=== PATIENT | female | born 1990 | race Caucasian/White ===

== ENCOUNTER 2017-12-15 18:03 | Emergency (ER) | payer MEDICAID, OTHER ==
[~2017-12-15] VITALS: Ht 162.6 cm; Wt 54.4 kg
[2017-12-15 18:23] VITALS: BP 152/101
--- NOTE | 2017-12-15 18:25 | NUR ---
PT WHEEL CHAIR ASSISTED BACK TO THE LOBBY
--- NOTE | 2017-12-15 18:56 | NUR ---
PATIENT TAKEN TO ER BED 9 FROM XRAY
[2017-12-15 19:00] VITALS: BP 150/100
--- NOTE | 2017-12-15 19:00 | NUR ---
27Y/F BIB FRIEND C/O BACK PAIN S/P FALL. PT STATES " SHE FELL FROM 6TH STEP OF LADDER AND LANDED ON HER BACK ON A CONCRETE FLOOR; DENIES ANY OTHER INJURY, -ALOC. PT STATES " EVERYTIME SHE BREATH IN IT HURTS, 10/10 PAIN SCALE. PT IS AAOX4, SKIN INTACT, DRY/WARM. PT HAS NO N/V/D. VSS; PATIENT POSITIONED FOR COMFORT; HOB ELEVATED; BEDRAILS UP X1; BED DOWN. ER MD MADE AWARE OF PT STATUS.
--- NOTE | 2017-12-15 19:43 | NUR ---
Dr. Segal evaluating patient at bedside.
[2017-12-15] MEDS ORDERED: KETOROLAC 30 MG/ML VIAL IM ONE (19:50)
[2017-12-15] MEDS ORDERED: DIAZEPAM 5 MG TAB PO ONE (19:50)
[2017-12-15] MEDS ORDERED: HYDROcodone/APAP 5/325 MG 1 TAB TAB PO ONE (19:50)
[2017-12-15 20:23] LABS: BARBITURATE, URINE NEG. ng/ml (NEG <=200); BENZODIAZEPINE, URINE NEG. ng/mL (NEG <=200); CANNABINOID, URINE POS. ng/mL (NEG <=50); COCAINE, URINE NEG. ng/mL (NEG <=300); OPIATE, URINE NEG. ng/mL (NEG <=2000); PHENCYCLIDINE SCREEN,URINE NEG. ng/mL (NEG <=25)
--- NOTE | 2017-12-15 21:00 | NUR ---
PT FOUND TO BE ELOPED FROM ROOM, EDMD AND PRIMARY RN MADE AWARE.
== END 2017-12-15 21:00 | disposition home or self-care (01) ==
LOC: MED 18:03
DX: S22.32XA Fracture of one rib, left side, initial encounter for closed fracture (principal); M54.9 Dorsalgia, unspecified; F17.200 Nicotine dependence, unspecified, uncomplicated; W11.XXXA Fall on and from ladder, initial encounter; Y93.89 Activity, other specified; Y92.59 Other trade areas as the place of occurrence of the external cause; Y99.8 Other external cause status
CPT/HCPCS: 71101; 80305; 81002; 81025; 96372; 99285; J1885

== ENCOUNTER 2024-02-12 17:54 | Emergency (ER) | payer OTHER ==
[~2024-02-12] VITALS: Ht 165.1 cm; Wt 54.4 kg
[2024-02-12 18:06] VITALS: BP 136/99; PULSE 109; RESP 21; TEMP 99.8; O2SAT 100
[2024-02-12 18:52] VITALS: BP 136/99; PULSE 109; RESP 21; TEMP 99.8; O2SAT 100
[2024-02-12 19:06] LABS: FLU A ANTIGEN negative (NEGATIVE); FLU B ANTIGEN NEGATIVE (NEGATIVE)
[2024-02-12 19:06] LABS: BILIRUBIN,URINE 1+ (NEGATIVE); BLOOD, URINE 1+ (NEGATIVE); COLOR,URINE YELLOW (YELLOW); LEUKOCYTE ESTERASE ,URINE 2+ (NEGATIVE); NITRITE, URINE POSITIVE (NEGATIVE); PROTEIN,URINE 1+ (NEGATIVE); UGLUCOSE NEGATIVE (NEGATIVE); UROBILINOGEN,URINE >=8.0 EU/dL (0.2 - 1)
[2024-02-12] MEDS: ACETAMINOPHEN EXTRA STRENGTH 500 MG TAB PO ONE (19:08)
[2024-02-12 19:14] LABS: APPEARANCE,URINE CLOUDY (CLEAR)
[2024-02-12 19:15] LABS: BACTERIA,URINE >30 (MANY) /HPF (None Seen); ICTOTEST NEGATIVE (NEGATIVE); RBC,URINE 80-100 /HPF (0-5); WBC,URINE 80-100 /HPF (0-5)
[2024-02-12 19:16] LABS: MUCUS,URINE None Seen /LPF (None Seen); SQUAMOUS EPITHELIAL CELL,UR 4-10 (MOD) /LPF (0-3 (FEW)); TRICHOMONAS,URINE None Seen /HPF (None Seen); WHITE BLOOD CELL CASTS,URINE None Seen /LPF (None Seen); YEAST,URINE None Seen /HPF (None Seen)
[2024-02-12] MEDS ORDERED: IBUP-2213 PO (19:27)
[2024-02-12] MEDS ORDERED: CEPH-588 PO (19:27)
[2024-02-12] MEDS ORDERED: ONDA-188 SL (19:27)
[2024-02-12] MEDS ORDERED: ACET500T99 PO (19:27)
[2024-02-13] MEDS ORDERED: CEPH-588 PO (23:08)
[2024-02-13] MEDS ORDERED: AZIT250T4 PO (23:09)
== END 2024-02-12 19:20 | disposition left against medical advice (07) ==
LOC: MED 17:54
DX: S09.90XA Unspecified injury of head, initial encounter (principal); N39.0 Urinary tract infection, site not specified; G89.29 Other chronic pain; M25.551 Pain in right hip; M54.9 Dorsalgia, unspecified; Z20.822 Contact with and (suspected) exposure to COVID-19; R05.9 Cough, unspecified; R09.81 Nasal congestion; Z79.899 Other long term (current) drug therapy; W22.8XXA Striking against or struck by other objects, initial encounter; Y92.89 Other specified places as the place of occurrence of the external cause; Y93.89 Activity, other specified; Y99.8 Other external cause status
CPT/HCPCS: 81001; 81025; 87086; 87186; 99283

== ENCOUNTER 2024-02-13 12:21 | Emergency (ER) | payer OTHER ==
[~2024-02-13 12:21] MED LIST: ACET500T99 PO; CEPH-588 PO; IBUP-2213 PO; ONDA-188 SL
[2024-02-13] MEDS ORDERED: CEPH-588 PO (23:08)
[2024-02-13] MEDS ORDERED: AZIT250T4 PO (23:09)
== END 2024-02-13 12:45 | disposition left against medical advice (07) ==
LOC: MED 12:21
DX: R51.9 Headache, unspecified (principal); Z53.21 Procedure and treatment not carried out due to patient leaving prior to being seen by health care provider

== ENCOUNTER 2024-02-13 16:12 | Emergency (ER) | payer OTHER ==
[~2024-02-13] VITALS: Ht 165.1 cm; Wt 52.2 kg
[2024-02-13 16:41] VITALS: BP 109/89; PULSE 122; RESP 20; TEMP 98.3; O2SAT 100
[2024-02-13 19:02] LABS: BASOPHILS # (AUTO) 0.1 K/uL (0.00-0.22); BASOPHILS % (AUTO) 0.4 % (0.0-2.0); EOSINOPHILS % (AUTO) 0.1 % (0.0-4.0); HEMATOCRIT 40.2 % (36-48); HEMOGLOBIN 13.5 g/dL (12.0-16.0); LYMPHOCYTES # (AUTO) 0.6 K/uL (2.5-16.5); LYMPHOCYTES % (AUTO) 3.8 % (20.5-51.1); MEAN CORPUSCULAR HEMOGLOBIN 31 pg (27-31); MEAN CORPUSCULAR HGB CONC 33 g/dL (33-37); MEAN CORPUSCULAR VOLUME 91.5 fL (80-94); MONOCYTES # (AUTO) 1.3 K/uL (0.8-1.0); MONOCYTES % (AUTO) 8.8 % (1.7-9.3); NEUTROPHILS # (AUTO) 13.1 K/uL (1.8-7.7); NEUTROPHILS % (AUTO) 86.9 % (42.2-75.2); PLATELET COUNT (AUTO) 197 K/uL (140-450); RED CELL DISTRIBUTION WIDTH 13.4 % (11.6-13.7); WHITE BLOOD COUNT (AUTO) 15.1 K/uL (4.8-10.8)
[2024-02-13] MEDS ORDERED: cefTRIAXone 1,000 MG VIAL ONE (19:23)
[2024-02-13 19:35] LABS: ALBUMIN 3.1 g/dL (3.4-5.0); ANION GAP 12.4 (8-16); CALCIUM 8.9 mg/dL (8.5-10.1); CARBON DIOXIDE 28.5 mmol/L (21-32); POTASSIUM 3.9 mmol/L (3.5-5.1); TOTAL BILIRUBIN 0.7 mg/dL (0.0-1.0); TOTAL PROTEIN, SERUM 7.2 g/dL (6.4-8.2)
[2024-02-13] MEDS: NACL 0.9% 1,500 ML IV ONE (19:35)
[2024-02-13 19:45] LABS: LACTIC ACID 0.8 mmol/L (0.4-2.0)
[2024-02-13] MEDS: KETOROLAC 30 MG/ML VIAL IVP ONE (19:50)
[2024-02-13 20:11] LABS: FLU A ANTIGEN NEGATIVE (NEGATIVE); FLU B ANTIGEN NEGATIVE (NEGATIVE)
[2024-02-13 20:14] LABS: BILIRUBIN,URINE 1+ (NEGATIVE); BLOOD, URINE 2+ (NEGATIVE); COLOR,URINE YELLOW (YELLOW); LEUKOCYTE ESTERASE ,URINE 1+ (NEGATIVE); NITRITE, URINE POSITIVE (NEGATIVE); PROTEIN,URINE 2+ (NEGATIVE); UGLUCOSE NEGATIVE (NEGATIVE); UROBILINOGEN,URINE >=8.0 EU/dL (0.2 - 1)
[2024-02-13 20:15] LABS: APPEARANCE,URINE HAZY (CLEAR)
[2024-02-13 20:28] LABS: ICTOTEST NEGATIVE (NEGATIVE)
[2024-02-13 20:29] LABS: BACTERIA,URINE 4+ /HPF (None Seen); MUCUS,URINE 2+ /LPF (None Seen); WBC,URINE >25 (MANY) /HPF (0-5)
[2024-02-13] MEDS ORDERED: CEPH-588 PO (23:08)
[2024-02-13] MEDS ORDERED: AZIT250T4 PO (23:09)
[2024-02-13 23:17] VITALS: BP 122/89; PULSE 92; RESP 20; TEMP 99; O2SAT 100
== END 2024-02-13 23:17 | disposition home or self-care (01) ==
LOC: MED 16:12
DX: S00.03XA Contusion of scalp, initial encounter (principal); N39.0 Urinary tract infection, site not specified; A41.9 Sepsis, unspecified organism; J18.9 Pneumonia, unspecified organism; Z20.822 Contact with and (suspected) exposure to COVID-19; R00.0 Tachycardia, unspecified; R07.89 Other chest pain; Z79.899 Other long term (current) drug therapy; W01.198A Fall on same level from slipping, tripping and stumbling with subsequent striking against other object, initial encounter; Y92.89 Other specified places as the place of occurrence of the external cause; Y93.89 Activity, other specified; Y99.8 Other external cause status
CPT/HCPCS: 36415; 70450; 71045; 80053; 81001; 81025; 83605; 85025; 87040; 87086; 87186; 87426; 87804; 96365; 96375; 99285; J0696; J1885; J7030

== ENCOUNTER 2024-02-16 01:18 | Emergency (ER) | payer OTHER ==
[~2024-02-16] VITALS: Ht 165.1 cm; Wt 52.2 kg
[~2024-02-16 01:18] MED LIST changes: +AZIT250T4 PO
[2024-02-16 01:21] VITALS: BP 114/87; PULSE 87; RESP 19; TEMP 98.5; O2SAT 98
[2024-02-16 02:09] LABS: APPEARANCE,URINE CLEAR (CLEAR); BILIRUBIN,URINE NEGATIVE (NEGATIVE); BLOOD, URINE 1+ (NEGATIVE); COLOR,URINE YELLOW (YELLOW); LEUKOCYTE ESTERASE ,URINE NEGATIVE (NEGATIVE); NITRITE, URINE NEGATIVE (NEGATIVE); PH,URINE 6.5 (5.0-9.0); PROTEIN,URINE NEGATIVE (NEGATIVE); UGLUCOSE NEGATIVE (NEGATIVE); UROBILINOGEN,URINE >=8.0 EU/dL (0.2 - 1)
[2024-02-16 02:20] LABS: BACTERIA,URINE 10-30 (MOD) /HPF (None Seen); MUCUS,URINE 1+ /LPF (None Seen); SQUAMOUS EPITHELIAL CELL,UR 0-3 (FEW) /LPF (0-3 (FEW))
[2024-02-16 02:46] LABS: BASOPHILS % (AUTO) 0.3 % (0.0-2.0); EOSINOPHILS # (AUTO) 0.2 K/uL (0-0.4); EOSINOPHILS % (AUTO) 2.2 % (0.0-4.0); HEMATOCRIT 34.6 % (36-48); HEMOGLOBIN 11.8 g/dL (12.0-16.0); LYMPHOCYTES # (AUTO) 1.6 K/uL (2.5-16.5); LYMPHOCYTES % (AUTO) 20.9 % (20.5-51.1); MEAN CORPUSCULAR HEMOGLOBIN 31 pg (27-31); MEAN CORPUSCULAR HGB CONC 34 g/dL (33-37); MONOCYTES # (AUTO) 1.1 K/uL (0.8-1.0); MONOCYTES % (AUTO) 13.5 % (1.7-9.3); NEUTROPHILS % (AUTO) 63.1 % (42.2-75.2); PLATELET COUNT (AUTO) 263 K/uL (140-450); RED CELL DISTRIBUTION WIDTH 13.7 % (11.6-13.7); WHITE BLOOD COUNT (AUTO) 7.8 K/uL (4.8-10.8)
[2024-02-16 02:58] LABS: ANION GAP 8.8 (8-16); CALCIUM 8.3 mg/dL (8.5-10.1); CARBON DIOXIDE 30.7 mmol/L (21-32); CREATININE 0.8 mg/dL (0.6-1.3); POTASSIUM 3.5 mmol/L (3.5-5.1)
[2024-02-16 03:07] LABS: LACTIC ACID 1.9 mmol/L (0.4-2.0)
[2024-02-16 03:11] VITALS: BP 112/55; PULSE 77; RESP 18; TEMP 98.5; O2SAT 98
[2024-02-16] MEDS ORDERED: cefTRIAXone 1,000 MG VIAL ONE (03:43)
[2024-02-16] MEDS ORDERED: AZITHROMYCIN 500 MG INJ VIAL IV ONE (03:43)
[2024-02-16] MEDS: ACETAMIN/CODEINE 120/12MG-5ML 5 ML UDC PO ONE (03:46)
[2024-02-16] MEDS: NACL 0.9% 1,000 ML IV ONE (03:50)
[2024-02-16] MEDS: AZITHROMYCIN 500 MG in DEXTROSE 5% 250 ML IV ONE (04:39)
[2024-02-16 05:22] LABS: AMPHETAMINE, URINE POSITIVE ng/ml (NEG <=1000); BARBITURATE, URINE NEGATIVE ng/ml (NEG <=200); BENZODIAZEPINE, URINE NEGATIVE ng/mL (NEG <=200); CANNABINOID, URINE NEGATIVE ng/mL (NEG <=50); COCAINE, URINE NEGATIVE ng/mL (NEG <=300); OPIATE, URINE NEGATIVE ng/mL (NEG <=2000); PHENCYCLIDINE SCREEN,URINE NEGATIVE ng/mL (NEG <=25)
== END 2024-02-16 05:44 | disposition home or self-care (01) ==
LOC: MED 01:18
DX: J18.9 Pneumonia, unspecified organism (principal); N39.0 Urinary tract infection, site not specified; F15.90 Other stimulant use, unspecified, uncomplicated; Z79.899 Other long term (current) drug therapy
CPT/HCPCS: 36415; 80048; 80305; 81001; 83605; 85025; 87086; 96365; 96367; 99284; J0456; J0696; J7030